=== PATIENT | female | born 1935 | race Caucasian/White ===

== ENCOUNTER 2017-06-17 14:36 | Emergency (ER) | payer OTHER ==
[~2017-06-17] VITALS: Ht 160 cm; Wt 98.9 kg
[~2017-06-17 14:36] MED LIST: ADVAIR HFA120 INHALA IH; GUAIFENESIN600 M1 PO; IBUPROFEN800 MG PO; K-DUR10 MEQ PO; LASIX20 MG PO; LEVAQUIN500 MG PO; LIPITOR20 MG PO; LOSARTAN POTAS100 MG PO; PREDNISONE5 MG PO; TAMBOCOR50 MG PO; TIAZAC120 MG PO; VENTOLIN HFA18 GM IH; XARELTO20 MG PO
[2017-06-17 19:17] VITALS: BP 160/80
== END 2017-06-17 18:46 | disposition home or self-care (01) ==
LOC: EME 14:36
PROC: 0HQFXZZ Repair Right Hand Skin, External Approach (ICD-10-PCS; principal; 2017-06-17)
DX: S61.411A Laceration without foreign body of right hand, initial encounter (principal); S61.202A Unspecified open wound of right middle finger without damage to nail, initial encounter; S00.03XA Contusion of scalp, initial encounter; W18.30XA Fall on same level, unspecified, initial encounter; Y93.01 Activity, walking, marching and hiking; E11.9 Type 2 diabetes mellitus without complications; E78.5 Hyperlipidemia, unspecified; I10 Essential (primary) hypertension; J44.9 Chronic obstructive pulmonary disease, unspecified; Z88.0 Allergy status to penicillin; Z87.891 Personal history of nicotine dependence
CPT/HCPCS: 70450; 73130; 99281; 99285